=== PATIENT | female | born 1945 | race Native Hawaiian/Other Pacific Islander ===

== ENCOUNTER 2017-03-02 11:51 | Observation (INO) | payer SELFPAY ==
[2017-03-02] MEDS ORDERED: 0.9 % SODIUM CHLORIDE 1,000 ML BAG IV ONE ×2 (13:22→15:05)
[2017-03-02 13:40] LABS: HEMATOCRIT 41.1 % (35.0-47.0); MEAN CELL VOLUME 94.9 fl (81-97); MEAN CORPUSCULAR HEMOGLOBIN 32.3 pg (27-33); MEAN CORPUSCULAR HGB CONC 34.1 g/dl (32-36); MEAN PLATELET VOLUME 11.9 fl (7.4-10.4); PLATELET COUNT 327 K/uL (130-400); RED BLOOD COUNT 4.33 M/uL (3.80-5.40); RED CELL DISTRIBUTION WIDTH 13.8 % (11.5-14.5); WHITE BLOOD COUNT W/O DIFF 11.1 K/uL (4.2-12.2)
[2017-03-02 13:50] LABS: ALB/GLOB RATIO 1.3 (1.1-1.8); ALBUMIN 3.9 gm/dL (3.5-5.0); ANION GAP 15.4 (7-16); BILIRUBIN,TOTAL 1.15 mg/dL (0.2-1.3); CARBON DIOXIDE 17.6 mmol/L (22-30); CREATININE 2.2 mg/dL (0.52-1.04); TOTAL PROTEIN 6.9 gm/dL (6.3-8.2)
[2017-03-02 13:52] LABS: PLATELET ESTIMATE NORMAL (NORMAL)
[2017-03-02] MEDS ORDERED: ONDANSETRON HCL IV 4 MG/2 ML VIAL IVP ONE (14:08)
[2017-03-02 16:56] LABS: URINE APPEARANCE CLEAR; URINE BILIRUBIN MODERATE (NEGATIVE); URINE BLOOD NEGATIVE (NEGATIVE); URINE COLOR YELLOW; URINE GLUCOSE (UA) NEGATIVE (NEGATIVE); URINE KETONE TRACE (NEGATIVE); URINE LEUKOCYTE ESTERASE NEGATIVE (NEGATIVE); URINE NITRITE NEGATIVE (NEGATIVE); URINE PROTEIN NEGATIVE (NEGATIVE); URINE UROBILINOGEN 0.2 E.U./dL (0.20 - 1.00)
--- NOTE | 2017-03-02 17:19 | Emergency Department Record ---
History of Present Illness - General Chief complaint: Vomiting Stated complaint: NO APPETITE,CAN'T KEEP FOOD DOWN Time Seen by Provider: 03/02/17 12:59 Source: Patient, Family Mode of Arrival: Wheelchair Limitations: No limitations - History of Present Illness Initial comments: pt has had nausea, vomiting and no appetite. she has lost weight and is very weak. she is here from [place] to visit her son. she also c/o back pain MD complaint: Nausea, Vomiting Onset/Timin -: Days(s) Description of Vomiting: Food contents Description of Diarrhea: Water Associated Abdominal Pain: Yes Location: Diffuse Radiation: Back Consistency: Constant Improves with: None Worsens with: None Associated Symptoms: Loss of appetite, Nausea/vomiting - Related Data Home Medications Medication Instructions Recorded Confirmed Last Taken Atorvastatin Calcium [Lipitor] 40 mg PO DAILY 03/02/17 03/02/17 Unknown Clopidogrel Bisulfate [Plavix] 75 mg PO DAILY 03/02/17 03/02/17 Unknown Fenofibrate,Micronized 67 mg PO DAILY 03/02/17 03/02/17 Unknown [Fenofibrate] Lisinopril [Prinivil] 20 mg PO DAILY 03/02/17 03/02/17 Unknown Allergies Allergy/AdvReac Type Severity Reaction Status Date / Time No Known Drug Allergies Allergy Verified 03/02/17 12:05 Travel Screening - Travel/Exposure Within Last 30 Days Have you traveled within the last 30 days?: Yes Location Detail:: [place], [place] - Travel/Exposure Within Last Year Have you traveled outside the [place] in the last year?: Yes Location Detail:: from [place] - Additonal Travel Details Have you been exposed to anyone with a communicable illness?: No - Travel Symptoms Symptom Screening: Vomiting Review of Systems Reviewed: No additional complaints except as noted below Constitutional: Reports: As per HPI. Denies: Chills, Fever, Malaise, Night sweats, Weakness, Weight change Eyes: Reports: As per HPI. Denies: Eye discharge, Eye pain, Photophobia, Vision change ENT: Reports: As per HPI. Denies: Congestion, Dental pain, Ear pain, Epistaxis , Hearing loss, Throat pain Respiratory: Reports: As per HPI. Denies: Cough, Dyspnea, Hemoptysis, Stridor, Wheezes Cardiovascular: Reports: As per HPI. Denies: Arrhythmia, Chest pain, Dyspnea on exertion, Edema, Murmurs, Orthopnea, Palpitations, Paroxysmal nocturnal dyspnea, Rheumatic Fever, Syncope Endocrine: Reports: As per HPI. Denies: Fatigue, Heat or cold intolerance, Polydipsia, Polyuria Gastrointestinal: Reports: As per HPI. Denies: Abdominal pain, Constipation, Diarrhea, Hematemesis, Hematochezia, Melena, Nausea, Vomiting Genitourinary: Reports: As per HPI. Denies: Abnormal menses, Discharge, Dyspareunia, Dysuria, Frequency, Hematuria, Incontinence, Retention, Urgency Musculoskeletal: Reports: As per HPI. Denies: Arthralgia, Back pain, Gout, Joint swelling, Myalgia, Neck pain Skin: Reports: As per HPI. Denies: Bruising, Change in color, Change in hair/ nails, Lesions, Pruritus, Rash Neurological: Reports: As per HPI. Denies: Abnormal gait, Confusion, Headache, Numbness, Paresthesias, Seizure, Tingling, Tremors, Vertigo, Weakness Psychiatric: Reports: As per HPI. Denies: Anxiety, Auditory hallucinations, Depression, Homicidal thoughts, Suicidal thoughts, Visual hallucinations Hematological/Lymphatic: Reports: As per HPI. Denies: Anemia, Blood Clots, Easy bleeding, Easy bruising, Swollen glands Past Medical History - SOCIAL HISTORY Smoking Status: Former smoker Alcohol Use: None Drug Use: None - RESPIRATORY Hx Respiratory Disorders: No - CARDIOVASCULAR Hx Cardio Disorders: No - NEURO Hx Neuro Disorders: Yes Hx CVA: Yes - GI Hx GI Disorders: No - Hx Genitourinary Disorders: No - ENDOCRINE Hx Endocrine Disorders: Yes Hx Diabetes: Yes - MUSCULOSKELETAL Hx Musculoskeletal Disorders: Yes - PSYCH Hx Psych Problems: No - HEMATOLOGY/ONCOLOGY Hx Hematology/Oncology Disorders: No Family Medical History Any Significant Family History?: No Physical Exam - General General Appearance: Alert, Oriented x3, Cooperative, Mild distress, Other ( cachectic) - Head Head exam: Normal inspection - Eye Eye exam: Normal appearance, PERRL, EOMI Pupils: Normal accommodation - ENT ENT exam: Normal exam, Mucous membranes dry, Normal external ear exam, Normal orophraynx, TM's normal bilaterally Ear exam: Normal external inspection. negative: External canal tenderness Nasal Exam: Normal inspection. negative: Discharge, Sinus tenderness Mouth exam: Normal external inspection, Tongue normal Teeth exam: Normal inspection. negative: Dental caries Throat exam: Normal inspection. negative: Tonsillar erythema, Tonsillar exudate - Neck Neck exam: Normal inspection, Full ROM. negative: Tenderness - Respiratory Respiratory exam: Normal lung sounds bilaterally. negative: Respiratory distress - Cardiovascular Cardiovascular Exam: Regular rate, Normal rhythm, Normal heart sounds - GI/Abdominal GI/Abdominal exam: Soft, Normal bowel sounds. negative: Tenderness - Rectal Rectal exam: Deferred - exam: Deferred - Extremities Extremities exam: Normal inspection, Full ROM, Normal capillary refill. negative: Tenderness - Back Back exam: Reports: Normal inspection, Full ROM. Denies: Muscle spasm, Rash noted, Tenderness - Neurological Neurological exam: Alert, CN II-XII intact, Normal gait, Oriented X3 - Psychiatric Psychiatric exam: Normal affect, Normal mood - Skin Skin exam: Dry, Intact, Normal color, Warm Course Vital Signs 03/02/17 03/02/17 03/02/17 11:56 14:21 16:55 Temperature 97.7 F Pulse Rate 74 Pulse Rate [ 67 71 Pulse Ox Probe] Respiratory 16 16 16 Rate Blood Pressure 138/89 Blood Pressure 132/100 120/69 [Left Arm] Pulse Ox 98 100 99 - Reevaluation(s) Reevaluation #1: 03/02/17 17:20 pt was advised to stay in hospital. she debated but then agreed. she is scheduled to fly back to [place] in 2 days. pt was d/w dr preciado and michelle Medical Decision Making - Lab Data Result diagrams: 03/02/17 12:10 03/02/17 12:10 Lab Results 03/02/17 03/02/17 03/02/17 Range/Units 12:10 12:10 12:10 WBC 11.1 (4.2-12.2) K/uL RBC 4.33 (3.80-5.40) M/uL Hgb 14.0 (11.6-16.0) gm/dl Hct 41.1 (35.0-47.0) % MCV 94.9 (81-97) fl MCH 32.3 (27-33) pg MCHC 34.1 (32-36) g/dl RDW 13.8 (11.5-14.5) % Plt Count 327 (130-400) K/uL MPV 11.9 H (7.4-10.4) fl Neutrophils % 81.0 H (47-80) % Eosinophils % Not Reportable Basophils % Not Reportable Lymphocytes 18.0 (16-45) % Monocytes 1.0 (0-9) % Platelet Estimate Normal (NORMAL) RBC Morphology Normal D-Dimer 1.08 H (0-0.59) mg/L FEU Sodium 139 (136-145) mmol/L Potassium 4.8 (3.5-5.1) mmol/L Chloride 106 (98-107) mmol/L Carbon Dioxide 17.6 L (22-30) mmol/L Anion Gap 15.4 (7-16) BUN 57 H (7-17) mg/dL Creatinine 2.2 H (0.52-1.04) mg/dL Estimated GFR 24 ml/min Random Glucose 81 (70-110) mg/dL Calcium 9.3 (8.5-10.1) mg/dL Total Bilirubin 1.15 (0.2-1.3) mg/dL AST 107 H (14-36) U/L ALT 99 H (9-52) U/L Alkaline Phosphatase 50 (38-126) U/L Total Protein 6.9 (6.3-8.2) gm/dL Albumin 3.9 (3.5-5.0) gm/dL Globulin 3.0 (1.4-4.8) gm/dL Albumin/Globulin Ratio 1.3 (1.1-1.8) Lipase 221 (23-300) U/L Urine Color Urine Appearance Urine pH (5.0-8.0) Ur Specific Cobb (1.002-1.030) Urine Protein (NEGATIVE) Urine Glucose (UA) (NEGATIVE) Urine Ketones (NEGATIVE) Urine Blood (NEGATIVE) Urine Nitrite (NEGATIVE) Urine Bilirubin (NEGATIVE) Urine Urobilinogen (0.20 - 1.00) E.U./dL Ur Leukocyte Esterase (NEGATIVE) 03/02/17 Range/Units 16:45 WBC (4.2-12.2) K/uL RBC (3.80-5.40) M/uL Hgb (11.6-16.0) gm/dl Hct (35.0-47.0) % MCV (81-97) fl MCH (27-33) pg MCHC (32-36) g/dl RDW (11.5-14.5) % Plt Count (130-400) K/uL MPV (7.4-10.4) fl Neutrophils % (47-80) % Eosinophils % Basophils % Lymphocytes (16-45) % Monocytes (0-9) % Platelet Estimate (NORMAL) RBC Morphology D-Dimer (0-0.59) mg/L FEU Sodium (136-145) mmol/L Potassium (3.5-5.1) mmol/L Chloride (98-107) mmol/L Carbon Dioxide (22-30) mmol/L Anion Gap (7-16) BUN (7-17) mg/dL Creatinine (0.52-1.04) mg/dL Estimated GFR ml/min Random Glucose (70-110) mg/dL Calcium (8.5-10.1) mg/dL Total Bilirubin (0.2-1.3) mg/dL AST (14-36) U/L ALT (9-52) U/L Alkaline Phosphatase (38-126) U/L Total Protein (6.3-8.2) gm/dL Albumin (3.5-5.0) gm/dL Globulin (1.4-4.8) gm/dL Albumin/Globulin Ratio (1.1-1.8) Lipase (23-300) U/L Urine Color Yellow Urine Appearance Clear Urine pH 5.5 (5.0-8.0) Ur Specific Cobb 1.025 (1.002-1.030) Urine Protein Negative (NEGATIVE) Urine Glucose (UA) Negative (NEGATIVE) Urine Ketones Trace H (NEGATIVE) Urine Blood Negative (NEGATIVE) Urine Nitrite Negative (NEGATIVE) Urine Bilirubin Moderate H (NEGATIVE) Urine Urobilinogen 0.2 (0.20 - 1.00) E.U./dL Ur Leukocyte Esterase Negative (NEGATIVE) Disposition Disposition: Admit Clinical Impression: Dehydration, Renal insufficiency, Abdominal aneurysm without mention of rupture Cholelithiasis Qualifiers: Cholelithiasis location: gallbladder Cholecystitis presence: without cholecystitis Biliary obstruction: without biliary obstruction Qualified Code(s) : K80.20 - Calculus of gallbladder without cholecystitis without obstruction Disposition: Still a Patient at [facility] Decision to Admit: Admit from ER Decision to Admit Date: 03/02/17 Decision to Admit Time: 17:24 Forms: Patient Portal Access Quality - Quality Measures Quality Measures: N/A - Blood Pressure Screening Does Patient Have Any of the Following: No Blood Pressure Classification: Pre-Hypertensive BP Reading Systolic Measurement: 138 Diastolic Measurement: 89 Screening for High Blood Pressure: < Pre-Hypertensive BP, F/U Documented > [ [id number]] Pre-Hypertensive Follow-up Interventions: Follow-up with rescreen every year.
[2017-03-02] MEDS ORDERED: ONDANSETRON HCL IV 4 MG/2 ML VIAL IVP PRN (19:42)
[2017-03-03] MEDS: 0.9 % SODIUM CHLORIDE 1000ML 1,000 ML IV PRN ×3 (01:20→20:34)
[2017-03-03] MEDS ORDERED: MORPHINE SULFATE 5 MG/ML PFS IVP PRN (04:47)
[2017-03-03 07:02] LABS: BASO % 0.2 % (0-6); EOS % 2.1 % (0-6); GRAN % 76.2 % (47-80); HEMATOCRIT 35.1 % (35.0-47.0); HEMOGLOBIN 11.9 gm/dl (11.6-16.0); LYMPH % 17.3 % (16-45); MEAN CELL VOLUME 95.6 fl (81-97); MEAN CORPUSCULAR HEMOGLOBIN 32.4 pg (27-33); MEAN CORPUSCULAR HGB CONC 33.9 g/dl (32-36); MEAN PLATELET VOLUME 10.9 fl (7.4-10.4); MONO % 4.2 % (0-9); PLATELET COUNT 232 K/uL (130-400); RED BLOOD COUNT 3.67 M/uL (3.80-5.40); RED CELL DISTRIBUTION WIDTH 13.6 % (11.5-14.5); WHITE BLOOD COUNT W/O DIFF 8.1 K/uL (4.2-12.2)
[2017-03-03 07:14] LABS: ALB/GLOB RATIO 1.1 (1.1-1.8); ALBUMIN 3.1 gm/dL (3.5-5.0); ANION GAP 9.8 (7-16); BILIRUBIN,TOTAL 0.88 mg/dL (0.2-1.3); CARBON DIOXIDE 18.2 mmol/L (22-30); TOTAL PROTEIN 5.8 gm/dL (6.3-8.2)
--- NOTE | 2017-03-03 07:43 | CT SCAN REPORT ---
EXAM: CT OF THE ABDOMEN AND PELVIS WITHOUT CONTRAST HISTORY: BACK PAIN. TECHNIQUE: Sequential axial images were obtained from the diaphragms through the ischiorectal fossa without intravenous contrast administration. Oral contrast was administered. FINDINGS: The visualized lung bases appear normal. There is cholelithiasis. No ductal dilatation. The appears normal. The pancreas and spleen appear normal. The adrenal glands appear normal. There are vascular calcifications within the kidneys. There is a passing stone at the right ureterovesical junction measuring 3 mm. No hydronephrosis. There is aneurysmal dilatation of the infrarenal abdominal aorta measuring 2.6 x 2.9 x 3.0 cm. The small bowel appears normal. The appendix is visualized and appears normal. There is an equivocal constricting lesion in the ascending colon. Direct visualization is recommended. The urinary bladder appears normal. There is no pelvic mass appreciated. There is osteopenia and mild degenerative change of the lumbar spine. IMPRESSION: 1. CHOLELITHIASIS WITHOUT DUCTAL DILATATION. 2. ANEURYSMAL DILATATION OF THE DISTAL ABDOMINAL AORTA MEASURING 2.6 X 2.9 X 3.0 CM. 3. EQUIVOCAL CIRCUMFERENTIAL WALL THICKENING INVOLVING THE ASCENDING COLON VERSUS PERISTALSIS. DIRECT VISUALIZATION IS RECOMMENDED. JOB NUMBER: [id number] [facility]
--- NOTE | 2017-03-03 07:45 | RADIOLOGY REPORT ---
EXAM: CHEST, TWO VIEWS HISTORY: DECREASED APPETITE. TECHNIQUE: Frontal and lateral views of the chest were performed. FINDINGS: The heart size is normal. The lungs are hyperinflated. No infiltrate or pleural effusion. There is osteopenia. IMPRESSION: NO ACUTE DISEASE PROCESS. JOB NUMBER: [id number] [facility]
--- NOTE | 2017-03-03 08:45 | ULTRASOUND REPORT ---
EXAM: ULTRASOUND OF THE ABDOMEN HISTORY: ABDOMINAL PAIN. TECHNIQUE: Sonographic evaluation of the abdomen was performed using mixon scale imaging. FINDINGS: The liver appears homogeneous. No focal hepatic mass. There is cholelithiasis with focal area of wall thickening. The common bile duct measures 3 mm. The pancreas and spleen appear normal. The kidneys are normal in size with no hydronephrosis. There is likely a nonobstructing calculus in the right kidney. There is a distal abdominal aortic aneurysm measuring 3.1 cm. There is a positive Ta's sign during scanning. IMPRESSION: 1. CHOLELITHIASIS WITH POSITIVE TA'S SIGN. FOCAL AREA OF WALL THICKENING. NO DUCTAL DILATATION. FINDINGS ARE SUGGESTIVE OF ACUTE CHOLECYSTITIS. 2. DISTAL ABDOMINAL AORTIC ANEURYSM MEASURING 3.1 CM. JOB NUMBER: [id number] [facility]
[2017-03-03] MEDS: LISINOPRIL 20 MG TABLET PO SCH (09:47)
[2017-03-03] MEDS: CLOPIDOGREL 75MG TABLET PO SCH (09:47)
--- NOTE | 2017-03-03 16:15 | History & Physical ---
History of Present Illness - Date of Service Date of Service for History & Physical: 03/03/17 - History of Present Illness Admitting Diagnosis: dehydration, cholelithiasis, renal insufficiency, aortic aneurysm History of Present Illness: 71 y/o female with CC nausea, vomiting, weakness admitted for dehydration, renal insufficiency, abdominal aneurysm, cholelithiasis. Past medical history includes former smoker, CVA, DM, arthritis. Prior to arrival had 4 day history of nausea, vomiting, weakness and very poor PO intake. Is from [place] and has been visiting family locally for the past 10 + days. gives most of history due to history CVA and slightly garbled speech. Per history she eats very little, but has had even less fluid and food intake since being in the [facility]. Does not have history of dysphagia. Denies recent sick contacts or food-borne concerns. Last colonoscopy done 2 months ago in [place] due to weight loss and vaginal bleeding, was normal. Has had vaginal bleeding intermittent for the past 12 months. Has been seen by [facility] in [place] in which states work up has been negative as to cause. While in the ED VSS. CBC with no elevation in WBC, 81% neutrophils. BUN 57, Cr. 2.2. D-dimer 1.08. AST/ALT 107/99. Protein and albumin slightly low. U/A with trace ketones and bilirubin. CXR negative for acute process. CT abdomen/pelvis shows cholelithiasis without ductal dilation, distal abdominal aorta aneurysm 3cm, wall thickening of ascending colon. Admitted for IV hydration, surgical consult for + gallstones and recent history nausea and vomiting. 03/03/17- resting in bed comfortably. Denies complaint but reports does not have an appetite. No further nausea or vomiting since admit. Reports she does not care for [place] food. Abdominal pain controlled. Moved bowels this am, was soft and formed. PCP: Has [facility] in [place] Travel Screening - Travel/Exposure Within Last 30 Days Have you traveled within the last 30 days?: Yes Location Detail:: [place] - Travel/Exposure Within Last Year Have you traveled outside the [place] in the last year?: Yes Location Detail:: lives in [place] - Additonal Travel Details Have you been exposed to anyone with a communicable illness?: No - Travel Symptoms Symptom Screening: Diarrhea, Vomiting Review of Systems Constitutional: Reports: As per HPI. Denies: Chills, Fever, Malaise, Night sweats, Weakness, Weight change Eyes: Reports: As per HPI. Denies: Eye discharge, Eye pain, Photophobia, Vision change ENT: Reports: As per HPI. Denies: Congestion, Dental pain, Ear pain, Epistaxis , Hearing loss, Throat pain Respiratory: Reports: As per HPI. Denies: Cough, Dyspnea, Hemoptysis, Stridor, Wheezes Cardiovascular: Reports: As per HPI. Denies: Arrhythmia, Chest pain, Dyspnea on exertion, Edema, Murmurs, Orthopnea, Palpitations, Paroxysmal nocturnal dyspnea, Rheumatic Fever, Syncope Endocrine: Reports: As per HPI. Denies: Fatigue, Heat or cold intolerance, Polydipsia, Polyuria Gastrointestinal: Reports: As per HPI. Denies: Abdominal pain, Constipation, Diarrhea, Hematemesis, Hematochezia, Melena, Nausea, Vomiting Genitourinary: Reports: As per HPI. Denies: Abnormal menses, Discharge, Dyspareunia, Dysuria, Frequency, Hematuria, Incontinence, Retention, Urgency Musculoskeletal: Reports: As per HPI. Denies: Arthralgia, Back pain, Gout, Joint swelling, Myalgia, Neck pain Skin: Reports: As per HPI. Denies: Bruising, Change in color, Change in hair/ nails, Lesions, Pruritus, Rash Neurological: Reports: As per HPI. Denies: Abnormal gait, Confusion, Headache, Numbness, Paresthesias, Seizure, Tingling, Tremors, Vertigo, Weakness Psychiatric: Reports: As per HPI. Denies: Anxiety, Auditory hallucinations, Depression, Homicidal thoughts, Suicidal thoughts, Visual hallucinations Hematological/Lymphatic: Reports: As per HPI. Denies: Anemia, Blood Clots, Easy bleeding, Easy bruising, Swollen glands Past Medical History - SOCIAL HISTORY Smoking Status: Former smoker - RESPIRATORY Hx Respiratory Disorders: No - CARDIOVASCULAR Hx Cardio Disorders: No - NEURO Hx Neuro Disorders: Yes Hx CVA: Yes - GI Hx GI Disorders: No - Hx Genitourinary Disorders: No - ENDOCRINE Hx Endocrine Disorders: Yes Hx Diabetes: Yes - MUSCULOSKELETAL Hx Musculoskeletal Disorders: Yes - PSYCH Hx Psych Problems: No - HEMATOLOGY/ONCOLOGY Hx Hematology/Oncology Disorders: No Family Medical History Any Significant Family History?: Yes Hx Dementia: Mother H&P Meds/Allergies - Allergies Allergies: Allergies Allergy/AdvReac Type Severity Reaction Status Date / Time No Known Drug Allergies Allergy Verified 03/02/17 12:05 - Home Medications Home Medications Medication Instructions Recorded Confirmed Last Taken Atorvastatin Calcium [Lipitor] 40 mg PO DAILY 03/02/17 03/02/17 Unknown Clopidogrel Bisulfate [Plavix] 75 mg PO DAILY 03/02/17 03/02/17 Unknown Fenofibrate,Micronized 67 mg PO DAILY 03/02/17 03/02/17 Unknown [Fenofibrate] Lisinopril [Prinivil] 20 mg PO DAILY 03/02/17 03/02/17 Unknown - Active Medications Active Medications: Current Medications Clopidogrel Bisulfate (Plavix) 75 mg PO DAILY [facility] Last Admin: 03/03/17 09:47 Dose: 75 mg Sodium Chloride () 1,000 mls @ 125 mls/hr IV .Q8H PRN PRN Reason: LARGE VOLUME IV Last Admin: 03/03/17 09:52 Dose: 125 mls/hr Lisinopril (Zestril) 20 mg PO DAILY [facility] Last Admin: 03/03/17 09:47 Dose: 20 mg Morphine Sulfate (Morphine Sulfate) 2.5 mg IVP Q3H PRN PRN Reason: Pain - General Stop: 03/10/17 04:48 Last Admin: 03/03/17 04:57 Dose: 2.5 mg Ondansetron HCl (Zofran) 4 mg IVP Q6H PRN PRN Reason: NAUSEA Physical Exam - Vital Signs Vital Signs: Vital Signs - Last 24 Hrs Temp Pulse Pulse Resp BP BP Pulse Ox 03/03/17 11:46 98.4 F 146/73 03/03/17 09:00 20 03/03/17 08:09 98.4 F 63 16 146/73 99 03/03/17 01:30 98.2 F 70 14 108/73 98 03/02/17 17:57 97.6 F 70 16 110/83 99 03/02/17 17:49 72 16 120/69 - General General Appearance: Alert, Oriented x3, Cooperative, Other (cachectic) Limitations: No limitations - Head Head exam: Normal inspection - Eye Eye exam: Normal appearance, PERRL, EOMI Pupils: Normal accommodation - ENT ENT exam: Normal exam, Mucous membranes moist, Normal external ear exam, Normal orophraynx, TM's normal bilaterally Ear exam: Normal external inspection. negative: External canal tenderness Nasal Exam: Normal inspection. negative: Discharge, Sinus tenderness Mouth exam: Normal external inspection, Tongue normal Teeth exam: Normal inspection. negative: Dental caries Throat exam: Normal inspection. negative: Tonsillar erythema, Tonsillar exudate - Neck Neck exam: Normal inspection, Full ROM. negative: Tenderness - Respiratory Respiratory exam: Normal lung sounds bilaterally. negative: Respiratory distress - Cardiovascular Cardiovascular Exam: Regular rate, Normal rhythm, Normal heart sounds Peripheral Pulses: 2+: Dorsalis Pedis (R), Dorsalis Pedis (L) - GI/Abdominal GI/Abdominal exam: Soft, Normal bowel sounds. negative: Pulsatile mass, Tenderness - Rectal Rectal exam: Deferred - exam: Deferred - Extremities Extremities exam: Normal inspection, Full ROM, Normal capillary refill. negative: Tenderness - Back Back exam: Reports: Normal inspection, Full ROM. Denies: Muscle spasm, Rash noted, Tenderness - Neurological Neurological exam: Alert, CN II-XII intact, Normal gait, Oriented X3 - Psychiatric Psychiatric exam: Normal affect, Normal mood - Skin Skin exam: Dry, Intact, Normal color, Warm Results - Labs Result Diagrams: 03/03/17 06:57 03/03/17 06:57 Labs Last 24 Hours: Laboratory Results - last 24 hr 03/03/17 03/03/17 06:57 06:57 WBC 8.1 RBC 3.67 L Hgb 11.9 Hct 35.1 MCV 95.6 MCH 32.4 MCHC 33.9 RDW 13.6 Plt Count 232 MPV 10.9 H Gran % 76.2 Lymphocytes % 17.3 Monocytes % 4.2 Eosinophils % 2.1 Basophils % 0.2 Sodium 139 Potassium 4.5 Chloride 111 H Carbon Dioxide 18.2 L Anion Gap 9.8 BUN 42 H Creatinine 1.0 Estimated GFR 58 Random Glucose 58 L Calcium 8.5 Total Bilirubin 0.88 AST 128 H ALT 96 H Alkaline Phosphatase 41 Total Protein 5.8 L Albumin 3.1 L Globulin 2.7 Albumin/Globulin Ratio 1.1 - Imaging and Cardiology CT scan - abdomen Status: Report reviewed (cholelithiasis without ductal dilation, distal abdominal aorta aneurysm 3cm, wall thickening of ascending colon) VTE H&P Assessment - Risk for VTE Risk for VTE: Yes Risk Level: Moderate Risk Assessment Date: 03/03/17 Risk Assessment Time: 09:00 VTE Orders Placed or Will Be Placed: Yes Plan - Detailed Diagnosis and Plan (1) Renal insufficiency Current Visit: Yes Status: Acute Base Code: N28.9 - DISORDER OF KIDNEY AND URETER, UNSPECIFIED Comment: 03/03/17- 71 y/o female with 4 day history of nausea, vomiting, weakness admitted for dehydration, renal insufficiency, cholelithiasis, incidental finding of abdominal aortic anyeurism. - Dr Ibarra consult today- she is a surgical candidate for cholecystectomy but is on Plavix. She is due to return to [place] on Friday and would prefer she have the surgery done there - Renal function has significantly improved with IV hydration - No further nausea or vomiting however still has poor appetite - Repeat CBC/CMP in am (2) Cholelithiasis Current Visit: Yes Status: Acute Qualifiers: Cholelithiasis location: gallbladder Cholecystitis presence: without cholecystitis Biliary obstruction: without biliary obstruction Qualified Code(s): K80.20 - Calculus of gallbladder without cholecystitis without obstruction Base Code: K80.20 - CALCULUS OF GALLBLADDER W/O CHOLECYSTITIS W/O OBSTRUCTION Comment: 03/03/17 - low fat, bland diet - dietary consult - is surgical candidate for cholecystectomy but prefers to have surgery in [place] - pain controlled - nausea/vomiting resolved (3) Dehydration Current Visit: Yes Status: Acute Base Code: E86.0 - DEHYDRATION Comment: - renal function significantly improved, Cr normalized today, BUN elevated - continue IV hydration - repeat labs in am (4) Abdominal aneurysm without mention of rupture Current Visit: Yes Status: Acute Base Code: I71.4 - ABDOMINAL AORTIC ANEURYSM, WITHOUT RUPTURE Comment: 03/03/17- Incidental finding on abdominal CT - to follow up with vascular surgeon upon return home (5) Full code status Current Visit: Yes Status: Acute Base Code: Z78.9 - OTHER SPECIFIED HEALTH STATUS Comment: 03/03/17- will remain full code during this hospitalization (6) DVT prophylaxis Current Visit: Yes Status: Acute Base Code: [id number] - Comment: 03/03/17- on Plavix, nursing to encourage frequent ambulation
[2017-03-03] MEDS ORDERED: ACETAMINOPHEN 500 MG TABLET PO PRN (22:04)
[2017-03-04] MEDS: 0.9 % SODIUM CHLORIDE 1000ML 1,000 ML IV PRN ×2 (05:29→14:41)
[2017-03-04 06:36] LABS: BASO % 0.3 % (0-6); EOS % 2.5 % (0-6); HEMATOCRIT 32.5 % (35.0-47.0); HEMOGLOBIN 11.2 gm/dl (11.6-16.0); LYMPH % 18.4 % (16-45); MEAN CELL VOLUME 95.6 fl (81-97); MEAN CORPUSCULAR HEMOGLOBIN 32.9 pg (27-33); MEAN CORPUSCULAR HGB CONC 34.5 g/dl (32-36); MEAN PLATELET VOLUME 11.1 fl (7.4-10.4); MONO % 4.8 % (0-9); PLATELET COUNT 207 K/uL (130-400); RED CELL DISTRIBUTION WIDTH 13.3 % (11.5-14.5); WHITE BLOOD COUNT W/O DIFF 6.9 K/uL (4.2-12.2)
[2017-03-04 06:50] LABS: ALBUMIN 2.7 gm/dL (3.5-5.0); ALKALINE PHOSPHATASE 39 U/L (38-126); ALT/SGPT 118 U/L (9-52); ANION GAP 8.2 (7-16); AST/SGOT 210 U/L (14-36); BILIRUBIN,TOTAL 0.95 mg/dL (0.2-1.3); BLOOD UREA NITROGEN 23 mg/dL (7-17); CARBON DIOXIDE 18.8 mmol/L (22-30); CREATININE 0.8 mg/dL (0.52-1.04); EST GLOMERULAR FILTRATION RATE > 60 ml/min; GLUCOSE,RANDOM 63 mg/dL (70-110); TOTAL PROTEIN 5.4 gm/dL (6.3-8.2)
[2017-03-04] MEDS ORDERED: MEMANTINE PO SCH (10:00)
[2017-03-04] MEDS: CLOPIDOGREL 75MG TABLET PO SCH (10:31)
[2017-03-04] MEDS: LISINOPRIL 20 MG TABLET PO SCH (10:31)
--- NOTE | 2017-03-04 11:23 | Discharge Summary ---
Providers Discharge Summary Date: 03/04/17 Date of admission: 03/02/17 17:39 Expected Date of Discharge: 03/04/17 Attending physician: MARLEN CRAIN Physical Exam - Vital Signs Vital Signs: Vital Signs - Last 24 Hrs Temp Pulse Resp BP BP Pulse Ox 03/04/17 10:00 97.4 F L 64 148/80 03/04/17 09:00 16 03/04/17 02:00 97.6 F 54 L 16 122/60 98 03/03/17 17:00 54 L 121/32 03/03/17 11:46 98.4 F 146/73 - General General Appearance: Alert, Oriented x3, Cooperative, Other (cachectic) Limitations: No limitations - Head Head exam: Normal inspection - Eye Eye exam: Normal appearance, PERRL, EOMI Pupils: Normal accommodation - ENT ENT exam: Normal exam, Mucous membranes moist, Normal external ear exam, Normal orophraynx, TM's normal bilaterally Ear exam: Normal external inspection. negative: External canal tenderness Nasal Exam: Normal inspection. negative: Discharge, Sinus tenderness Mouth exam: Normal external inspection, Tongue normal Teeth exam: Normal inspection. negative: Dental caries Throat exam: Normal inspection. negative: Tonsillar erythema, Tonsillar exudate - Neck Neck exam: Normal inspection, Full ROM. negative: Tenderness - Respiratory Respiratory exam: Normal lung sounds bilaterally. negative: Respiratory distress - Cardiovascular Cardiovascular Exam: Regular rate, Normal rhythm, Normal heart sounds Peripheral Pulses: 2+: Dorsalis Pedis (R), Dorsalis Pedis (L) - GI/Abdominal GI/Abdominal exam: Soft, Normal bowel sounds. negative: Pulsatile mass, Tenderness - Rectal Rectal exam: Deferred - exam: Deferred - Extremities Extremities exam: Normal inspection, Full ROM, Normal capillary refill. negative: Tenderness - Back Back exam: Reports: Normal inspection, Full ROM. Denies: Muscle spasm, Rash noted, Tenderness - Neurological Neurological exam: Alert, CN II-XII intact, Normal gait, Oriented X3 - Psychiatric Psychiatric exam: Normal affect, Normal mood - Skin Skin exam: Dry, Intact, Normal color, Warm Hospitalization - Hospitalization Admission Diagnosis: dehydration, cholelithiasis, renal insufficiency, aortic aneurysm - Problem List/Discharge Diagnosis (1) Cholelithiasis Status: Acute Discharge Diagnosis: Cholelithiasis location: gallbladder Cholecystitis presence: without cholecystitis Biliary obstruction: without biliary obstruction Qualified Code(s): K80.20 - Calculus of gallbladder without cholecystitis without obstruction Base Code: K80.20 - CALCULUS OF GALLBLADDER W/O CHOLECYSTITIS W/O OBSTRUCTION Comment: 03/04/17- clinically improved. no nausea/vomiting. not tolerating much food due to not liking any of the [place] food we have to offer. CT abdomen showed cholelithiasis w/o ductal dilatation. additionally, an aneurysm and focal wall thickening of the ascending colon were noted. abdominal u/s also showed cholelithiasis with focal thickening c/w cholecystitis. Patient not clinically exhibiting any signs of cholecystits with resolved pain, nausea, afebrile and normal WBC count. -Dr. Ibarra, general surgeon, evaluated patient and recommends cholecystectomy as soon as she can get that set upon her return [place]. She will need to hold her plavix for 6 days prior. patient was given the option to remain hospitalized here for that duration and have surgical procedure but prefers to return home. She and her understand risks and wish to return home for any futher medical procedures. She will have all of her notes, imaging reports, and lab results to take with her at time of discharge. states he has already scheduled her an appointment with her doctor upon return. -until that time continue low fat, bland diet as tolerating -educated patient and her on signs/symptoms of cholecystitis and that she would need to seek emergent medical care if present including fever, severe pain in the RUQ, vomiting/inability to tolerate liquids by mouth. They voiced their understanding. (2) Renal insufficiency Status: Acute Base Code: N28.9 - DISORDER OF KIDNEY AND URETER, UNSPECIFIED Comment: 03/04/17- improved. Bun of 23 and Cr of 0.8 today. likely secondary to dehydration. She is tolerating po fluids. -will plan to discharge this afternoon with plan for her to return to [place] tomorrow morning. has already made appointment with her doctor upon return. (3) Abdominal aneurysm without mention of rupture Status: Acute Base Code: I71.4 - ABDOMINAL AORTIC ANEURYSM, WITHOUT RUPTURE Comment: 03/04/17- Incidental finding on abdominal CT - to follow up with vascular surgeon upon return home (4) Colon wall thickening Status: Acute Base Code: K63.9 - DISEASE OF INTESTINE, UNSPECIFIED Comment: 03/04/17- circumferential wall thicking of the ascending colon noted on CT abdomen. Direct visualization recommended by radiology -patient will need to be scheduled for colonoscopy upon her return to [place] (5) DVT prophylaxis Status: Acute Base Code: [id number] - Comment: 03/04/17- on Plavix, nursing to encourage frequent ambulation (6) Full code status Status: Acute Base Code: Z78.9 - OTHER SPECIFIED HEALTH STATUS Comment: 03/04- will remain full code during this hospitalization - Hospitalization Course Disposition: Home, Self-Care Hospital Course: 71 y/o female with CC nausea, vomiting, weakness admitted for dehydration, renal insufficiency, abdominal aneurysm, cholelithiasis. Past medical history includes former smoker, CVA, DM, arthritis. Prior to arrival had 4 day history of nausea, vomiting, weakness and very poor PO intake. [place] and has been visiting family locally for the past 10 + days. gives most of history due to history CVA and slightly garbled speech. Per history she eats very little, but has had even less fluid and food intake since being in the [facility]. Does not have history of dysphagia. Denies recent sick contacts or food-borne concerns. Last colonoscopy done 2 months ago in [place] due to weight loss and vaginal bleeding, was normal. Has had vaginal bleeding intermittent for the past 12 months. Has been seen by [facility] in [place] in which states work up has been negative as to cause. While in the ED VSS. CBC with no elevation in WBC, 81% neutrophils. BUN 57, Cr. 2.2. D-dimer 1.08. AST/ALT 107/99. Protein and albumin slightly low. U/A with trace ketones and bilirubin. CXR negative for acute process. CT abdomen/pelvis shows cholelithiasis without ductal dilation, distal abdominal aorta aneurysm 3cm, wall thickening of ascending colon. Admitted for IV hydration, surgical consult for + gallstones and recent history nausea and vomiting. 03/03/17- resting in bed comfortably. Denies complaint but reports does not have an appetite. No further nausea or vomiting since admit. Reports she does not care for [place] food. Abdominal pain controlled. Moved bowels this am, was soft and formed. 03/04/17- patient states her pain is much improved since admission. still has some intermittent right upper quadrant pain when she moves a certain way or with deep palpation. she denies nausea but doesn't have an appetite. states she doesn't like our food. Hasn't eaten much the past 2 weeks while vacationing here. has not had a BM since admission which was loose and non-bloody. Overall. states her pain is much better controlled and she still plans on making her return flight to [place] tomorrow. PCP: [facility] in [place] Procedures: Imaging and X-Rays 03/03/17 19:42 ABDOMEN, COMPLETE [US] Stat Abnormal Labs: Abnormal Lab Results 03/03/17 03/03/17 03/04/17 Range/Units 06:57 06:57 06:31 RBC 3.67 L 3.40 L (3.80-5.40) M/uL Hgb 11.2 L (11.6-16.0) gm/dl Hct 32.5 L (35.0-47.0) % MPV 10.9 H 11.1 H (7.4-10.4) fl Chloride 111 H (98-107) mmol/L Carbon Dioxide 18.2 L (22-30) mmol/L BUN 42 H (7-17) mg/dL Random Glucose 58 L (70-110) mg/dL Calcium (8.5-10.1) mg/dL AST 128 H (14-36) U/L ALT 96 H (9-52) U/L Total Protein 5.8 L (6.3-8.2) gm/dL Albumin 3.1 L (3.5-5.0) gm/dL Albumin/Globulin Ratio (1.1-1.8) 03/04/17 Range/Units 06:31 RBC (3.80-5.40) M/uL Hgb (11.6-16.0) gm/dl Hct (35.0-47.0) % MPV (7.4-10.4) fl Chloride 111 H (98-107) mmol/L Carbon Dioxide 18.8 L (22-30) mmol/L BUN 23 H (7-17) mg/dL Random Glucose 63 L (70-110) mg/dL Calcium 8.2 L (8.5-10.1) mg/dL AST 210 H (14-36) U/L ALT 118 H (9-52) U/L Total Protein 5.4 L (6.3-8.2) gm/dL Albumin 2.7 L (3.5-5.0) gm/dL Albumin/Globulin Ratio 1.0 L (1.1-1.8) Condition at Discharge: (2) Stable Discharge Medications - Discharge Medications Home Medications: Ambulatory Orders Atorvastatin Calcium [Lipitor] 40 mg PO DAILY 03/02/17 [Last Taken Unknown] Clopidogrel Bisulfate [Plavix] 75 mg PO DAILY 03/02/17 [Last Taken Unknown] Fenofibrate,Micronized [Fenofibrate] 67 mg PO DAILY 03/02/17 [Last Taken Unknown ] Lisinopril [Prinivil] 20 mg PO DAILY 03/02/17 [Last Taken Unknown] Memantine HCl 20 mg PO [id number] 03/03/17 [Last Taken 02/28/17 20 mg] Discharge Plan - Discharge Instructions Activity at Discharge: Resume Usual Activities As Tolerated Diet at Discharge: Advance to Usual Diet, Low Fat, Low Cholesterol Instructions: Cholecystitis (DC), Gallstones (GEN), Low Fat Diet (DC), Heart Healthy Diet (DC), Cholesterol and Your Health (GEN), Acute Nausea and Vomiting (DC) Additional Instructions: 2 Activity: Resume Usual Activities As Tolerated 2 Diet: Advance to Usual Diet Low Fat, Low Cholesterol 2 Consults: [] 2 Follow Up: [with your primary care physician once you return to [place] within 10 days] 2 Dressing/Wound Care: (Type) (Change) 2 Additional: [Continue home medications Return to the emergency room with any new or worsening symptoms]
--- NOTE | 2017-03-06 11:50 | Medical Records Consult ---
DATE OF CONSULTATION: 03/03/2017 REASON FOR CONSULTATION: Nausea and vomiting. HISTORY OF PRESENT ILLNESS: The patient is a 71-year-old female who is here in the [place] visiting from [place] to visit her granddaughters. She states that she has had about a 4- to 6-week history of nausea, vomiting, some mild weight loss. She had some rectal bleeding as well. She was worked up in [place] in the form of colonoscopy, which was done about 2 months ago. This was normal in her recollection. The who does most of the speaking states that they had one small polyp which was left in place. She also had a gynecologic exam which was normal due to the fact that she could not tell if she was bleeding rectally or vaginally. Since then, this has slowed down and she has had really no recent rectal bleeding at all. She states that she has had some nausea and does not like the diet in the [place] and her diet has been limited. She is leaving back to [place] on Friday. The nausea and vomiting became worse; therefore, she was seen at [facility] ER. Here, she was noted to have some renal insufficiency with a creatinine of 2.2. They did a CT scan which did reveal cholelithiasis, abdominal aortic aneurysm. At the time in the ER, she was really having no pain. Abdominal ultrasound was also ordered this morning which did reveal cholelithiasis and some possible focal thickening of her gallbladder wall. Upon seeing her today, she states that she is in no pain. She does feel a bit better. She does not converse that strongly due to the fact she has had a prior CVA. states that she is in the beginning stages of dementia as well. She has had some vascular issues in the past for which she has seen a vascular surgeon in [place]; however, they elected not to operate due to her age and underlying medical conditions. PAST MEDICAL HISTORY: CVA, peripheral vascular disease, hypertension, hypercholesterolemia. PAST SURGICAL HISTORY: Colonoscopy, tubal ligation. CURRENT MEDICATIONS: 1. Plavix. 2. Lipitor. 3. Prinivil. ALLERGIES: No known medical allergies. SOCIAL HISTORY: Denies any tobacco or alcohol usage. PHYSICAL EXAMINATION: GENERAL: She is alert and oriented x3. VITAL SIGNS: Stable. She is afebrile. HEART: Regular rate and rhythm. LUNGS: Clear. ABDOMEN: Soft, nontender, nondistended. Bowel sounds are noted. EXTREMITIES: No traces of edema. BACK: She does have some low back pain around the level of her sacrum. IMAGING STUDIES: Reviewed. IMPRESSION: Cholelithiasis with evidence of probable chronic cholecystitis. PLAN: At this point we had a long discussion. The main objective of the patient and her family is to get her back to [place]. I let her know that if she desired surgical intervention, she would have to wait due to the fact that she is on Plavix, and she has no desire to do this. I feel we could put her on a low-fat diet and probably get her back as long as she is safe from a medical standpoint. I let the family know that they may want to gather the records from here and see their family doctor in [place] for a surgical referral for her gallbladder. She also has the known aneurysm, which may need to be followed as well. The patient's family is agreeable to the plan. I did give them another option of keeping her here this week, holding her Plavix, and pursuing cholecystectomy later this week after holding her Plavix, and they had no desire to follow this. Risks of acute cholecystitis and emergent surgical intervention were discussed as well. They understand this fully. The plan would be to defer discharge to the medicine team and they are going to call me with any problems. Thank you for this referral. [place]
== END 2017-03-04 16:45 | disposition home or self-care (01) ==
LOC: ER 11:51 → MEDSURG 17:39
PROVIDERS: ADMIT Family Medicine; ATTEND Family Medicine
DX: K80.10 Calculus of gallbladder with chronic cholecystitis without obstruction (principal); E86.0 Dehydration; I71.4 Abdominal aortic aneurysm, without rupture; N28.9 Disorder of kidney and ureter, unspecified; Z78.9 Other specified health status; I10 Essential (primary) hypertension; Z86.73 Personal history of transient ischemic attack (TIA), and cerebral infarction without residual deficits; I73.9 Peripheral vascular disease, unspecified; Z79.02 Long term (current) use of antithrombotics/antiplatelets; F03.90 Unspecified dementia, unspecified severity, without behavioral disturbance, psychotic disturbance, mood disturbance, and anxiety; F06.8 Other specified mental disorders due to known physiological condition
CPT/HCPCS: 99285 ×2; 96374; 96361; 83690; 85025 ×2; 80053 ×3; 81003; 85379; 85027; 71020; 76700; 74176; G0378 ×3; J3490 ×2; J2405; J2270; 99217; 99220; J7030